=== PATIENT | male | born 2000 | race Caucasian/White ===

== ENCOUNTER 2021-02-14 16:12 | Emergency (ER) | payer OTHER ==
[2021-02-14 16:23] VITALS: BP 133/79
--- NOTE | 2021-02-14 17:09 | XRAY Report ---
PROCEDURE: Knee 4 View RT, x-ray INDICATIONS: Trauma TECHNIQUE: 3 views of the right knee(s) were acquired. COMPARISON: None. FINDINGS: Bones: No fractures or dislocations. No suspicious bony lesions. Soft tissues: No joint effusion. No suspicious soft tissue calcifications. IMPRESSION: Unremarkable right knee radiographs Reviewed by: Ismael Child MD on 02/14/2021 4:08 PM [place] Approved by: Ismael Child MD on 02/14/2021 4:08 PM [place] Station ID: [id number]
--- NOTE | 2021-02-14 17:21 | XRAY Report ---
PROCEDURE: Ankle 3 View RT INDICATIONS: Trauma TECHNIQUE: 3 views of the ankle were acquired. COMPARISON: None FINDINGS: Bones: No fractures or dislocations. Ankle mortise is normally aligned. No suspicious bony lesions . Soft tissues: No tibiotalar joint effusion. Achilles tendon appears normal. IMPRESSION: Unremarkable right ankle radiographs Reviewed by: Ismael Child MD on 02/14/2021 4:19 PM [facility] Approved by: Ismael Child MD on 02/14/2021 4:19 PM [facility] Station ID: [id number]
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
== END 2021-02-14 17:41 | disposition home or self-care (01) ==
LOC: ED 16:12
DX: S99.911A Unspecified injury of right ankle, initial encounter (principal); S89.91XA Unspecified injury of right lower leg, initial encounter; V69.3XXA Occupant (driver) (passenger) of heavy transport vehicle injured in unspecified nontraffic accident, initial encounter; Y93.89 Activity, other specified; Y92.138 Other place on military base as the place of occurrence of the external cause; Y99.1 Military activity
CPT/HCPCS: 99282; 99283